=== PATIENT | female | born 1945 | race Caucasian/White ===

== ENCOUNTER 2022-05-06 05:41 | Day surgery (SDC) | payer MEDICARE, OTHER ==
[2022-05-04 14:15] VITALS: BMI 28.3
[2022-05-06] MEDS ORDERED: ONDANSETRON 4 MG/2 ML VIAL IVP ONE (05:50)
[2022-05-06] MEDS ORDERED: DEXAMETHASONE SOD PHOSPHATE 4 MG/ML 1 ML VIAL IV ONE (05:50)
[2022-05-06] MEDS ORDERED: MIDAZOLAM 2 MG/2 ML VIAL IV PRN (05:50)
[2022-05-06] MEDS ORDERED: LACTATED RINGERS 1,000 ML IV SCH (05:50)
[2022-05-06 06:37] LABS: Glucose,Whole Blood 138 mg/dL (70-110)
[2022-05-06 06:45] VITALS: RESP 16
[2022-05-06] MEDS ORDERED: HYDROmorphone 0.5 MG/0.5 ML SYRINGE IVP PRN (07:00)
[2022-05-06] MEDS ORDERED: LIDOCAINE 2% INJ 20 MG/ML (2 ML VIAL) ONE (07:21)
[2022-05-06] MEDS ORDERED: ePHEDrine 50 MG/ML 1 ML VIAL ONE (07:21)
[2022-05-06] MEDS ORDERED: fentaNYL (PF) 50 MCG/ML 2 ML AMP ONE (07:21)
[2022-05-06] MEDS ORDERED: PROPOFOL 10 MG/ML 20 ML VIAL IV ONE (07:21)
[2022-05-06] MEDS ORDERED: ROPIVACAINE 5 MG/ML 30 ML VIAL ONE (07:21)
[2022-05-06] MEDS ORDERED: SODIUM CHLORIDE 0.9% (PF) 10 ML VIAL ONE (07:21)
[2022-05-06] MEDS ORDERED: SUCCINYLCHOLINE CHLORIDE 200 MG/10 ML VIAL IV ONE (07:21)
[2022-05-06 09:26] VITALS: TEMP 98
--- NOTE | 2022-05-06 09:40 | P.OP ---
Date of Procedure: 05/06/22 Preoperative Diagnosis: 1. Hallux valgus right foot 2. Hammertoe second right foot Postoperative Diagnosis: 1. Same 2. Same Procedure(s) Performed: 1. Lapidus bunionectomy right foot 2. Hammertoe correction second digit right foot Implants: Lapiplasty plates and screws Arthrex hammertoe implant Anesthesia: LUIS ENRIQUE Surgeon: Kareem Sunshine Estimated Blood Loss (ml): 6 Pathology: none sent Condition: stable Disposition: PACU Description of Procedure: Prior to the patient being brought to the operative room, anesthesia administered nerve block on the right lower extremity. Then the patient was brought into the operative room and placed on table in the supine position. Timeout was taken to confirm correct patient identifiers, correct procedure, and correct site of surgery. When all staff in the room were in agreement with the timeout the patient was induced placed under general anesthesia. A well-padded tourniquet was placed on the ankle. The foot was then prepped and draped in usual manner. The foot was exsanguinated and the tourniquet inflated 250 mmHg. Attention was directed over the medial aspect of the first metatarsal phalangeal joint where a linear incision was made between the neurovascular structures. The incision was deepened down to the subcutaneous layer careful to identify, avoid, and retract any neurovascular structures and cauterize any bleeding vessels. Dissection was then carried down to the joint capsule where 2 semi- elliptical converging incisions were made along the medial aspect of the first metatarsal phalangeal joint capsule. The interposing piece of capsule was removed from the surgical field and the capsule reflected from medial aspect of first metatarsal head. The sesamoid apparatus was distracted plantarly in the lateral sesamoid collateral ligament was transected and a lateral capsulotomy performed. Then attention was directed to the dorsal aspect of the foot over the first tarsometatarsal joint. A linear incision was made medial to the extensor hallucis longus tendon with the center of the incision over the first tarsometatarsal joint. The incision was deepened down to the subcutaneous tissue careful to identify, avoid, and retract any neurovascular structures and cauterize any bleeding vessels. Blunt dissection was then carried down to the joint capsule which was incised medial to the extensor hallucis longus tendon area and subperiosteal dissection was performed to reflect the soft tissue away from the joint. An osteotome was used to free the soft tissue from around the joint surfaces to help mobilize the frontal plane correction. A guidewire and placed through the base of the first metatarsal from medial to lateral. This is was used as a joystick for the frontal plane rotation correction. The small fulcrum was placed at the base of the first metatarsal, the joint seeker was also placed at the first tarsometatarsal joint as far lateral as possible. And then the reduction clamp was applied around the first metatarsal and lateral to the second metatarsal. While holding the frontal plane correction the reduction clamp was reduced to close the intermetatarsal angle. Once the amount of correction was acceptable under fluoroscopy, a wire was placed through the reduction clamp to lock the correction in place. The cutting guide was then placed over the joint seeker then held in place with 2 straight pins and then one angled pin so it did not slide dorsally. The bone cuts were then made through the cutting jig. Cutting jig was removed, leaving the [address], as was the fulcrum. The compression/distraction device was then placed over the remaining wires and then opened to allow access to the cut surfaces of bone. Both cut surfaces were removed fully with no remaining pieces. The wound was then irrigated thoroughly with antibiotic saline. Then a 2.0 mm drill bit was used to aggressively fenestrate the conjoining surfaces of the arthrodesis site. The fulcrum was reinserted at the lateral base of the first metatarsal . Then the distraction device was reversed for compression and while holding the great toe dorsiflexed the arthrodesis site was compressed fully. Fluoroscopy was used to check the alignment which showed full compression at the arthrodesis site with maintained correction of the intermetatarsal angle and anatomic alignment of the sesamoids. Threaded olive wire was then inserted across the arthrodesis site for temporary fixation. The medial plate was applied first it was aligned under fluoroscopy and then temporarily fixated. The 2 screw holes closest to the arthrodesis site were filled with the compression/locking screws until they were fully seated. The outer 2 holes were done with straight locking screws. The dorsal straight plate was then positioned under fluoroscopy until correct and then temporarily fixated. The 2 holes closest to the arthrodesis site were filled with the compression/locking screw and the outer holes with the straight locking screws. All extraneous instrumentation was removed and then a final fluoroscopic imaging showed full correction of the intermetatarsal angle, proper placement of hardware, no gapping at the arthrodesis, and the sesamoids anatomically aligned. Stress examination intercuneiform articulations indicated abnormal gapping the area. Therefore the decision was made for intercuneiform screw to stabilize this area. A guidewire was inserted base of first metatarsal angle across the arthrodesis site into the intermediate cuneiform. [place] Tristan was performed and then a partially threaded cannulated screw was inserted over the guidewire and advanced until a compressed the intercuneiform joint. Further stress testing showed no gapping in the intercuneiform area. Then attention directed over the dorsal aspect of the second digit. A linear incision was made over the proximal interphalangeal joint. The incision was deepened down the saphenous tissue careful to identify, avoid, and retract any neurovascular structures and cauterize any bleeding vessels dissection was carried down to the joint capsule of the proximal interphalangeal joint. Transverse incision was made to the joint capsule and extensor tendon and the collateral ligaments released. Sagittal saw was used to remove the proximal phalangeal head. The guidewire for the hammertoe implant was then used to create pilot control operator helper holes in the proximal middle phalanges drill holes for the implant was then made in the proximal and middle phalanges. With the pin still in place exposed at the middle phalanges the threaded portion of the hammertoe implant was placed into the base of the middle phalanx until it was at proper depth. And then the arms of the proximal portion were compressed and placed in the pilot control operator helper hole in the proximal phalanx and then the toe was compressed to seat the implant fully once fluoroscopy confirmed that the implant was fully seated the wire was advanced to deployed the arms of the proximal portion of the implant. And then the wire was removed. The wound is irrigated thoroughly with antibiotic saline. The extensor tendon was reapproximated with 3-0 Vicryl and the skin closed with 3-0 nylon. All wounds were thoroughly irrigated with antibiotic saline. Capsular closure was done with 0 Vicryl in both incisions. All incisions were closed subcutaneously with 4-0 Monocryl. The large dorsal and medial incisions were closed with 3-0 Stratafix in a running subcuticular manner for skin. Dermal glue was applied to all the incisions and allowed to dry. Steri-Strips are then placed across incision and covered with an Arthrex jumpstart dressing. A bulky dry dressings applied to foot. The tourniquet was released capillary refill return to all digits on the foot. The patient then placed in a well-padded, well molded posterior mold/sugar tong splint. The foot was held in neutral position as it dried. Once dry, the patient was reversed from general anesthesia and taken recovery with vital signs stable.
[2022-05-06] MEDS ORDERED: LACTATED RINGERS 1,000 ML IV ONE (10:03)
[2022-05-06 10:31] VITALS: BP 152/76; PULSE 86
--- NOTE | 2022-05-06 11:54 | P.ANPRN ---
Procedure Note - Anesthesia - Nerve Block Performed Right Adductor Canal Time Out Performed: Yes (06:52) Date of Procedure: 05/06/22 Procedure Start Time: : Procedure Stop Time: : Location of Patient: PreOp Indication: Acute Post-Operative Pain, Requested by Surgeon (Dr Sunshine) Sedation Type: Sedate with meaningful contact maintained Preparation: Sterile Prep Position: Supine Catheter: None Needle Types: Pajunk Needle Gauge: 21 Ultrasound used to visualize needle placement: Yes Ultrasound used to observe medication spread: Yes Injectate: 0.5% Ropivacaine (see comment for volume) (15cc) Blood Aspirated: No Pain Paresthesia on Injection Noted: No Resistance on Injection: Normal Image Stored and Saved: Yes Events: Uneventful and Well Tolerated
--- NOTE | 2022-05-06 11:57 | P.ANPRN ---
Procedure Note - Anesthesia - Nerve Block Performed Right Popliteal Time Out Performed: Yes Date of Procedure: 05/06/22 Procedure Start Time: 06:58 Procedure Stop Time: 07:03 Location of Patient: PreOp Indication: Acute Post-Operative Pain, Requested by Surgeon (Dr Sunshine) Preparation: Sterile Prep Position: Left Lateral Catheter: None Needle Types: Pajunk Needle Gauge: 21 Ultrasound used to visualize needle placement: Yes Ultrasound used to observe medication spread: Yes Injectate: 0.5% Ropivacaine (see comment for volume) (15cc +5cc PF Normal saline) Blood Aspirated: No Pain Paresthesia on Injection Noted: No Resistance on Injection: Normal Image Stored and Saved: Yes Events: Uneventful and Well Tolerated
== END 2022-05-06 10:42 | disposition home or self-care (01) ==
LOC: OR 05:41
PROVIDERS: ATTEND Podiatrist
DX: M20.11 Hallux valgus (acquired), right foot (principal); M20.41 Other hammer toe(s) (acquired), right foot; G89.18 Other acute postprocedural pain; E11.9 Type 2 diabetes mellitus without complications; I10 Essential (primary) hypertension; K21.9 Gastro-esophageal reflux disease without esophagitis; Z79.84 Long term (current) use of oral hypoglycemic drugs; Z79.899 Other long term (current) drug therapy
CPT/HCPCS: 64447; 64445; 76942; 28297; 28285; C1713; J2250; J0330; J1100; J0690; J2405; J3010; J2795; J2704; J2001